=== PATIENT | male | born 1955 | race Caucasian/White ===

== ENCOUNTER 2022-05-03 13:30 | Emergency (ER) | payer OTHER ==
[~2022-05-03] VITALS: Ht 165.1 cm; Wt 77.1 kg
[2022-05-03 13:30] VITALS: BP_SYST 112
[2022-05-03] MEDS ORDERED: BACITRACIN 1 GM OINT TP ONE ×2 (14:53→15:09)
[2022-05-03] MEDS ORDERED: BACITRACIN ZINC 15 GM TOPICAL OINTMENT TP ONE (15:00)
[2022-05-03] MEDS ORDERED: ACETAMINOPHEN 325 MG TABLET PO ONE (15:00)
[2022-05-03] MEDS ORDERED: ACETAMINOPHEN 500 MG TABLET ONE (15:18)
[2022-05-03] MEDS ORDERED: ONDA-8 TL (16:13)
[2022-05-03] MEDS ORDERED: IBUP-1971 PO (16:13)
[2022-05-03] MEDS ORDERED: IBUPROFEN 800 MG TABLET PO ONE (16:15)
[2022-05-03] MEDS ORDERED: DIPHTH,PERTUSS(ACELL),TET VAC 0.5 ML VIAL (Tdap) I.M. ONE (16:30)
[2022-05-03 16:33] VITALS: BP_SYST 118
== END 2022-05-03 16:33 | disposition home or self-care (01) ==
LOC: SED 13:30
DX: S00.81XA Abrasion of other part of head, initial encounter (principal); F07.81 Postconcussional syndrome; Z79.899 Other long term (current) drug therapy; W01.0XXA Fall on same level from slipping, tripping and stumbling without subsequent striking against object, initial encounter; Y93.89 Activity, other specified; Y92.89 Other specified places as the place of occurrence of the external cause; Y99.8 Other external cause status
CPT/HCPCS: 70450-TC; 76376; 90715; 99285